=== PATIENT | male | born 2000 | race Two or more races ===

== ENCOUNTER 2025-10-15 10:48 | Emergency (ER) | payer SELFPAY ==
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
[2025-10-15 10:57] VITALS: BP 154/81; PULSE 132; RESP 16; TEMP 37.2; O2SAT 98
[2025-10-15 10:59] VITALS: BMI 27.8
[2025-10-15 11:31] VITALS: BP 154/81; PULSE 120; RESP 16; TEMP 37.2; O2SAT 96
[2025-10-15 11:49] VITALS: BP 154/81; PULSE 114; RESP 16; O2SAT 99
== END 2025-10-15 11:50 ==
LOC: SERX 11:19
PROVIDERS: Emergency Provider Emergency Medicine
DX: Z02.89 Encounter for other administrative examinations (principal); S50.02XA Contusion of left elbow, initial encounter; S40.211A Abrasion of right shoulder, initial encounter; S50.311A Abrasion of right elbow, initial encounter; S40.011A Contusion of right shoulder, initial encounter; S50.01XA Contusion of right elbow, initial encounter; Y09 Assault by unspecified means
CPT/HCPCS: 99281